=== PATIENT | female | born 1985 | race Caucasian/White ===

== ENCOUNTER → 2016-09-21 | Outpatient (CLI) | payer BC ==
[~2016-09-21] MED LIST: DCS100C PO; FERR-47 PO; HYDR-3714 PO; IBUP-1773 PO
--- NOTE | 2016-09-21 11:22 | Diagnostic Imaging Report ---
PROCEDURE: US abdomen complete. TECHNIQUE: Multiple real-time grayscale images were obtained over the abdomen in various projections. INDICATION: Generalized abdominal pain. FINDINGS: The pancreas is largely obscured. The liver is fairly homogeneous with no focal lesion seen. Hepatopetal flow in the portal vein is noted. The gallbladder demonstrates no stones or wall thickening. The CBD is 4 mm in caliber. The spleen is 9.5 CM in length. The right kidney is 9.6, and the left kidney is 9.1 cm in length. No hydronephrosis or focal lesion seen. The aorta and IVC are largely obscured by bowel gas. No ascites or fluid collection in the abdomen is seen. Sonographic [place] sign reportedly negative. IMPRESSION: Unremarkable exam. Dictated by: Dictated on workstation # [id number]
== END ==
LOC: RAD 08:11
PROVIDERS: ATTEND Internal Medicine
DX: R10.84 Generalized abdominal pain (principal)
CPT/HCPCS: 76700

== ENCOUNTER → 2016-09-24 | Outpatient (CLI) | payer BC ==
[~2016-09-24] MED LIST changes: +CATHETER FLUSH 10 ML SYR IV PRN
--- NOTE | 2016-09-24 14:36 | Diagnostic Imaging Report ---
INDICATION: Right upper quadrant abdominal pain. Nuclear hepatobiliary study performed in the routine fashion with intravenous injection of 4.97 mCi of technetium 99m Choletec. FINDINGS: There is prompt uptake of the tracer by the liver. Tracer is visualized in the biliary tree within 15 minutes. Tracer is visualized in the gallbladder within 20 minutes. Tracer is visualized in the small bowel within 1 hour. The patient was then given Ensure orally. The gallbladder ejection fraction was calculated. The calculated gallbladder ejection fraction was 47.4 percent. IMPRESSION: Normal nuclear hepatobiliary study with normal gallbladder ejection fraction. Dictated by: Dictated on workstation # [id number]
== END ==
LOC: CARD 09:55
PROVIDERS: ATTEND Internal Medicine
DX: R10.84 Generalized abdominal pain (principal); R10.11 Right upper quadrant pain
CPT/HCPCS: 78227

== ENCOUNTER 2016-11-08 05:36 | Outpatient (CLI) | payer BC ==
[~2016-11-08] VITALS: Ht 152.4 cm; Wt 89.4 kg
[~2016-11-08 05:36] MED LIST changes: -CATHETER FLUSH 10 ML SYR IV PRN
[2016-11-08] MEDS ORDERED: LACT1CAP74 PO (10:56)
[2016-11-08] MEDS ORDERED: OMEP40CA36 PO (10:56)
[2016-11-08] MEDS ORDERED: MULT-974 PO (10:56)
== END 2016-11-08 11:01 ==
LOC: PREOP 05:36
PROVIDERS: ATTEND Surgery
DX: Z01.818 Encounter for other preprocedural examination (principal); K21.9 Gastro-esophageal reflux disease without esophagitis

== ENCOUNTER 2016-11-10 08:34 | Day surgery (SDC) | payer BC ==
[~2016-11-10] VITALS: Ht 152.4 cm; Wt 89.4 kg
[~2016-11-10 08:34] MED LIST changes: +LACT1CAP74 PO; +MULT-974 PO; +OMEP40CA36 PO
[2016-11-10] MEDS ORDERED: NS IV 500 ML 500 ML IV PRN (09:10)
[2016-11-10] MEDS ORDERED: LIDOCAINE JELLY 2% (XYLOCAINE) 5 ML TUBE MM PRN (09:15)
[2016-11-10] MEDS ORDERED: HURRICAINE EXT TUBE (BENZOCAINE) XX PRN (09:15)
[2016-11-10] MEDS ORDERED: NS IV 500 ML 500 ML ONE (09:17)
[2016-11-10 09:38] VITALS: BP 118/77
[2016-11-10] MEDS ORDERED: CYAN50008 PO (09:47)
[2016-11-10] MEDS ORDERED: LIDOCAINE JELLY 2% (XYLOCAINE) 5 ML TUBE ONE (11:01)
[2016-11-10] MEDS ORDERED: MIDAZOLAM 2 MG/2 ML (VERSED) VIAL ONE ×5 (11:02→11:20)
[2016-11-10] MEDS ORDERED: HURRICAINE EXT TUBE (BENZOCAINE) ONE (11:02)
[2016-11-10] MEDS ORDERED: fentaNYL INJECTION 100 MCG/2 ML AMP ONE (11:02)
--- NOTE | 2016-11-10 11:04 | Conscious Sedation/ASA ---
Conscious Sedation Pre-Proced Time Reviewed: 10:00 ASA Class: 2 Airway Mallampati Classification: ([place] appropriate class) I. II. III, IV Lungs Heart ASA score ASA 1: a normal healthy patient ASA 2: a patient with a mild systemic disease (mid diabetes, controlled hypertension, obesity ASA 3: a patient with a severe systemic disease that limits activity (angina , COPD, prior Myocardial infarction) ASA 4: a patient with an incapacitating disease that is a constant threat to life (CHF, renal failure) ASA 5: a moribund patient not expected to survive 24 hrs. (ruptured aneurysm) ASA 6: a declared brain patient whose organs are being harvested. For emergent operations, add the letter E after the classification Grade 2 Sedation Plan: Analgesia, Amnesia, Plan communicated to team members, Discussed options with patient/fam, Discussed risks with patient/fam Note The patient is an appropriate candidate to undergo the planned procedure, sedation, and anesthesia. The patient immediately re-assessed prior to indication. LORI AMBROSIO MD Nov 10, 2016 11:04
--- NOTE | 2016-11-10 11:04 | Progress Note-Pre Operative ---
Pre-Operative Progress Note H&P Reviewed The H&P was reviewed, patient examined and no changes noted. Date Seen by Provider: Nov 10, 2016 Time Seen by Provider: 10:00 Date H&P Reviewed: Nov 10, 2016 Time H&P Reviewed: 10:00 Pre-Operative Diagnosis: LORI LIPSCOMB MD Nov 10, 2016 11:04
[2016-11-10] MEDS: MIDAZOLAM 2 MG/2 ML (VERSED) VIAL IVP PRN ×5 (11:10→11:22)
[2016-11-10] MEDS: fentaNYL INJECTION 100 MCG/2 ML AMP IVP PRN ×2 (11:11→11:14)
[2016-11-10] MEDS ORDERED: morphine INJ 10 MG/ML 1ML (SYR OR VIAL) IV PRN (11:15)
[2016-11-10] MEDS ORDERED: ACETAMINOPHEN 325 MG TABLET/CAPLET (TYLENOL) PO PRN (11:15)
[2016-11-10] MEDS ORDERED: ONDANSETRON 4 MG/2 ML (SDV) Z0FRAN IV PRN (11:15)
[2016-11-10] MEDS ORDERED: HYDROcodone/APAP 5 MG/325 MG (LORTAB) TAB PO PRN (11:15)
--- NOTE | 2016-11-10 11:53 | Progress Note-Post Operative ---
Post-Operative Progess Note Surgeon (s)/Food Stylist (s) Surgeon LORI AMBROSIO MD Food Stylist: none Pre-Operative Diagnosis GERD Post-Operative Diagnosis reflux esophagitis(class B), small HH(2cm), mild gastritis, mild-moderate duodenitis. Procedure & Operative Findings Date of Procedure 11/10/16 Procedure Performed/Findings EGD with bx. Anesthesia Type CS Estimated Blood Loss Estimated blood loss (mL): minimal Specimens/Packing Specimens Removed GE jxn, antrum, duodenum LORI AMBROSIO MD Nov 10, 2016 11:53 am
[2016-11-10 11:55] VITALS: BP 118/70
[2016-11-10] MEDS ORDERED: PANT40TA2 PO (11:55)
[2016-11-10] MEDS ORDERED: SUCR1TAB36 PO (11:55)
--- NOTE | 2016-11-10 11:57 | Discharge Inst-Surgical ---
D/C Lap Instructions-HEBERT New, Converted, or Re-Newed RX: RX on Chart Follow Up Appt in 6 weeks Activity as tolerated High Fiber Diet 25g or more per day Avoid Alcohol, Caffeine, Spicy [place] and Acid foods. Drink 64 fluid oz or more of fluids per day. Symptoms to Report: Fever over 101 degree F, Nausea/Vomiting If any problems/questions: Contact your physician or go to Emergency Room LORI AMBROSIO MD Nov 10, 2016 11:56 am
[2016-11-10 12:20] VITALS: BP 104/75
[2016-11-10 12:35] VITALS: BP 104/75
--- NOTE | 2016-11-10 13:14 | OPERATIVE REPORT ---
DATE OF SERVICE: 11/10/2016 ATTENDING PRIMARY CARE PHYSICIAN: Dr. Марина Alvarez. PREOPERATIVE DIAGNOSIS: Gastroesophageal reflux disease and upper abdominal pain. POSTOPERATIVE DIAGNOSIS: Reflux esophagitis, class B, small hiatal hernia approximately 2 cm in size, mild gastritis, mild to moderate duodenitis. PROCEDURE: EGD with biopsy. SURGEON: Dr. Ambrosio. ANESTHESIA: Conscious sedation. ESTIMATED BLOOD LOSS: Minimal. FINDINGS: Reflux esophagitis class B, small hiatal hernia approximately 2 cm in size, mild gastritis, mild to moderate duodenitis. No formal ulcers, polyps or neoplasms. DISPOSITION: The patient tolerated the procedure well. INDICATIONS: The patient is a 31-year-old female who has had upper abdominal pain for the past year. She reports the past three months this has become worse in severity. She has had a bloating sensation as well as pain in the epigastric region substernally as well as radiation towards the back. She reports traditional symptoms of heartburn and reflux as well. She does notice that sometimes when she eats worse or eats out, this makes her symptoms worse. She did have an ultrasound of her gallbladder which was normal. She then had a HIDA scan performed which showed an ejection fraction of 47%. She was started on Prilosec 40 mg daily, and her symptoms have improved; however, she has had slight recurrent symptoms over time. DESCRIPTION OF PROCEDURE: The patient was brought to the endoscopy suite, laid in the left lateral decubitus position. After adequate IV pain and sedative medications and conscious sedation anesthesia, the mouthpiece was applied. The endoscope was placed in the mouth, visualizing the pharynx and hypopharyngeal region. Vocal cords, epiglottis and vallecula identified and appeared to be normal. The endoscope was then gently intubated at the esophageal opening and esophagus insufflated. The endoscope was then advanced to the first, second and third portion of esophagus. At the level of the GE junction, a reflux esophagitis class B identified. There were no ulcers or strictures identified in this region. A biopsy was taken with forceps with visualization of good hemostasis. The endoscope was then easily advanced into the stomach and the endoscope retroflexed, visualizing a small hiatal hernia approximately 2 cm in size. A mild gastritis was noted. There were no ulcers, polyps or any neoplasms identified. Biopsy was taken of the stomach antrum with visualization of good hemostasis. The endoscope was then advanced to the pylorus and the first and second portions of the duodenum with a mild to moderate duodenitis noted as well. There were no ulcers identified. A biopsy was taken of the duodenum with visualization of good hemostasis. The endoscope was then slowly withdrawn taking a second look and suctioning residual air with no additional findings. The patient tolerated the procedure well. We will await the biopsy results; however, her symptoms may be related to acid hypersecretion versus hiatal hernia versus diet versus a food allergy. We will proceed with Protonix 40 mg daily, as well as Carafate q.i.d. for the next two weeks and have her follow up. Job ID: [id number] DocumentID: [id number] Dictated Date: 11/10/2016 11:49:00 [employer] Date: 11/10/2016 13:13:43 Dictated By: LORI AMBROSIO MD MTDD
== END 2016-11-10 12:35 | disposition home or self-care (01) ==
LOC: ENDO 08:34
PROVIDERS: ATTEND Surgery
DX: K21.0 Gastro-esophageal reflux disease with esophagitis (principal); K44.9 Diaphragmatic hernia without obstruction or gangrene; K29.60 Other gastritis without bleeding; K29.80 Duodenitis without bleeding; Z87.891 Personal history of nicotine dependence
CPT/HCPCS: 84703; 88305

== ENCOUNTER → 2017-08-11 | Outpatient (CLI) | payer BC ==
[~2017-08-11] MED LIST changes: +CYAN50008 PO; +PANT40TA2 PO; +SUCR1TAB36 PO
--- NOTE | 2017-08-11 18:35 | Diagnostic Imaging Report ---
INDICATION: anatomy survey. TECHNIQUE: Multiple real-time grayscale images were obtained over the gravid uterus. COMPARISON: None. FINDINGS: There is a single live intrauterine in variable lie throughout the examination. The cervix is closed and measures 5.7 cm in length. The placenta is anteriorly located and there is no previa or low-lying placenta. heart rate is 165 beats per minute. The amount of amniotic fluid appears visually appropriate. Due to advanced gestational age, the maternal adnexa are not well seen. anatomy survey was performed and the following structures are seen and normal: Cisterna magna, cerebellum, cerebral ventricles, four-chamber heart, stomach, kidneys, all four extremities, urinary bladder, lips, and nose. The spine, umbilical cord insertion, and three-vessel cord are not well visualized. Biometrical measurements are as follows: Biparietal 4.82 cm, age 20 weeks 5 days. Head circumference 18.18 cm, age 20 weeks 5 days. Abdominal circumference 16.19 cm, age 21 weeks 2 days. Femur length 3.38 cm, age 20 weeks 5 days. Sonographic estimate age: 20 weeks 6 days. Sonographic estimated date of delivery: 12/23/2017. Estimated Weight: 386 gm (+/- 56 gm). LMP percentile: 86%. heart rate: 165 beats per minute. number: 1 of 1. IMPRESSION: 1. Single live intrauterine . 2. anatomy survey is normal with the exception of suboptimal visualization of the spine, umbilical cord, and umbilical cord insertion. Dedicated short-term follow-up imaging is advised to reassess these structures. Dictated by: Dictated on workstation # [id number]
== END ==
LOC: RAD 17:23
PROVIDERS: ATTEND Obstetrics & Gynecology
DX: Z36.89 Encounter for other specified antenatal screening (principal); Z3A.20 20 weeks gestation of pregnancy
CPT/HCPCS: 76805

== ENCOUNTER → 2017-10-03 | Outpatient (CLI) | payer BC ==
--- NOTE | 2017-10-03 16:10 | Diagnostic Imaging Report ---
INDICATION: Followup spine, growth, as well as cord insertion. TECHNIQUE: Multiple real-time grayscale images were obtained over the gravid uterus. COMPARISON: 08/11/2017. FINDINGS: There is a single live fetus in a cephalic presentation. heart rate was recorded at 142 beats per minute. Placenta is anterior. Amniotic fluid volume is normal. spine is unremarkable. The cord insertion is unremarkable. Biometrical measurements are as follows: Biparietal 7.06 cm, age 28 weeks 3 days. Head circumference 26.6 cm, age 29 weeks 0 days. Abdominal circumference 25.93 cm, age 30 weeks 1 days. Femur length 5.43 cm, age 28 weeks 6 days. Sonographic estimate age: 29 weeks 1 days. Sonographic estimated date of delivery: 12/18/2017. Estimated Weight: 1388 gm (+/- 203 gm). LMP percentile: 93%. heart rate: 142 beats per minute. number: 1 of 1. IMPRESSION: Single live IUP at approximately 29 weeks gestational age demonstrating normal interval growth when compared with prior exam. No complicating features are detected. Dictated by: Dictated on workstation # [id number]
== END ==
LOC: RAD 15:18
PROVIDERS: ATTEND Obstetrics & Gynecology
DX: Z36.89 Encounter for other specified antenatal screening (principal); Z3A.29 29 weeks gestation of pregnancy
CPT/HCPCS: 76816

== ENCOUNTER → 2017-12-05 | Outpatient (CLI) | payer BC ==
[~2017-12-05] MED LIST changes: +ACET-2267 PO; +FERR-84 PO; +PANT40TA3 PO
--- NOTE | 2017-12-05 13:35 | Diagnostic Imaging Report ---
INDICATION: Followup growth. TECHNIQUE: Multiple real-time grayscale images were obtained over the gravid uterus. COMPARISON: 10/03/2017. FINDINGS: There is a single live fetus in a cephalic presentation. heart rate was recorded at 155 beats per minute. The placenta is anterior. Amniotic fluid index is 13.2 cm. Cervical length is 5.3 cm. Biometrical measurements are as follows: Biparietal 9.29 cm, age 37 weeks 6 days. Head circumference 34.46 cm, age 39 weeks 6 days. Abdominal circumference 37.00 cm, age 41 weeks 0 days. Femur length 7.18 cm, age 36 weeks 6 days. Sonographic estimate age: 39 weeks 0 days. Sonographic estimated date of delivery: 12/12/2017. Estimated Weight: 3824 gm (+/- 558 gm). LMP percentile: 98%. heart rate: 155 beats per minute. number: 1 of 1. IMPRESSION: Single live IUP at approximately 39 weeks gestational age demonstrating normal interval growth when compared with prior exam. No complicating features are seen. Dictated by: Dictated on workstation # [id number]
== END ==
LOC: RAD 10:35
PROVIDERS: ATTEND Obstetrics & Gynecology
DX: O36.63X0 Maternal care for excessive fetal growth, third trimester, not applicable or unspecified (principal); Z3A.39 39 weeks gestation of pregnancy
CPT/HCPCS: 76816

== ENCOUNTER 2017-12-19 05:32 | Outpatient (CLI) | payer BC ==
[~2017-12-19] VITALS: Ht 152.4 cm; Wt 102.5 kg
[~2017-12-19 05:32] MED LIST changes: -ACET-2267 PO; -FERR-84 PO; -PANT40TA3 PO
[2017-12-19] MEDS ORDERED: FERR-84 PO (11:37)
[2017-12-19] MEDS ORDERED: PANT40TA3 PO (11:37)
== END 2017-12-19 11:41 | disposition home or self-care (01) ==
LOC: PREOP 05:32
PROVIDERS: ATTEND Obstetrics & Gynecology
DX: Z01.818 Encounter for other preprocedural examination (principal)

== ENCOUNTER 2017-12-23 04:36 | Inpatient (IN) | payer BC ==
[~2017-12-23] VITALS: Ht 152.4 cm; Wt 101.8 kg
[~2017-12-23 04:36] MED LIST changes: +FERR-84 PO; +PANT40TA3 PO
[2017-12-23 06:06] VITALS: BP 121/73
[2017-12-23] MEDS ORDERED: LACTATED RINGERS 1,000 ML IV PRN ×2 (06:19)
[2017-12-23] MEDS ORDERED: D5 LR IV SOLUTION 1,000 ML IV SCH ×2 (06:20→08:22)
[2017-12-23] MEDS ORDERED: CATHETER FLUSH 10 ML SYR IV PRN (06:30)
[2017-12-23] MEDS ORDERED: METOCLOPRAMIDE INJ 10 MG/2 ML (REGLAN) IV ONE (06:30)
[2017-12-23] MEDS ORDERED: metroNIDAZOLE 500MG/100ML IVPB 100 ML IV ONE (06:30)
[2017-12-23] MEDS ORDERED: CITRIC ACID/SOB CIT (BICITRA) 30 ML UDC PO ONE (06:30)
[2017-12-23] MEDS ORDERED: FAMOTIDINE 20MG/2ML IV (PEPCID) IV ONE (06:30)
[2017-12-23] MEDS ORDERED: ceFAZolin INJECTION 1,000 MG in NS (IVPB) 50 ML IV ONE (06:30)
[2017-12-23 06:31] LABS: BASOPHILS % (AUTO) 0 % (0-10); EOSINOPHILS # (AUTO) 0.2 10^3/uL (0.0-0.3); EOSINOPHILS % (AUTO) 2 % (0-10); HEMATOCRIT 34 % (35-52); HEMOGLOBIN 11.4 G/DL (11.5-16.0); LYMPHOCYTES # (AUTO) 1.8 X 10^3 (1.0-4.0); LYMPHOCYTES % (AUTO) 16 % (12-44); MEAN CORPUSCULAR HEMOGLOBIN 29 PG (25-34); MEAN CORPUSCULAR HGB CONC 34 G/DL (32-36); MEAN CORPUSCULAR VOLUME 85 FL (80-99); MONOCYTES % (AUTO) 9 % (0-12); NEUTROPHILS # (AUTO) 8.3 X 10^3 (1.8-7.8); NEUTROPHILS % (AUTO) 73 % (42-75); PLATELET COUNT 242 10^3/uL (130-400); RED BLOOD COUNT 3.99 10^6/uL (4.35-5.85); RED CELL DISTRIBUTION WIDTH 16.5 % (10.0-14.5); WHITE BLOOD COUNT 11.3 10^3/uL (4.3-11.0)
[2017-12-23] MEDS ORDERED: fentaNYL INJECTION 100 MCG/2 ML AMP ONE (06:36)
[2017-12-23 06:38] LABS: BILIRUBIN,URINE NEGATIVE (NEGATIVE); CLARITY,URINE CLEAR; COLOR,URINE YELLOW; GLUCOSE, URINE (UA) NEGATIVE (NEGATIVE); KETONES,URINE NEGATIVE (NEGATIVE); LEUKOCYTE ESTERASE ,URINE 1+ (NEGATIVE); NITRITE,URINE NEGATIVE (NEGATIVE); PH,URINE 7 (5-9); PROTEIN,URINE NEGATIVE (NEGATIVE); UROBILINOGEN,URINE NORMAL (NORMAL)
[2017-12-23 06:46] LABS: AMORPHOUS SEDIMENT,UR FEW AMOR PHOSPHATE /LPF; BACTERIA,URINE TRACE /HPF; WBC,URINE 0-2 /HPF
--- NOTE | 2017-12-23 07:13 | Progress Note-Pre Operative ---
Pre-Operative Progress Note H&P Reviewed The H&P was reviewed, patient examined and no changes noted. Patient will do cord blood banking. Has kit with her Date Seen by Provider: Dec 23, 2017 Time Seen by Provider: 07:05 Date H&P Reviewed: Dec 23, 2017 Time H&P Reviewed: 07:00 Pre-Operative Diagnosis: previous section FATUMA TEE DO Dec 23, 2017 07:13
[2017-12-23] MEDS ORDERED: BUPIVACAINE SPINAL 0.75% (SENSORCAINE) 2 ML AMP ONE (07:27)
[2017-12-23] MEDS ORDERED: LIDOCAINE PF 2% 5 ML (XYLOCAINE) VIAL ONE (07:27)
[2017-12-23] MEDS ORDERED: DEXAMETHASONE 10 MG/ML (DECADRON) 1 ML VIAL ONE (07:28)
[2017-12-23] MEDS ORDERED: ONDANSETRON 4 MG/2 ML (SDV) Z0FRAN ONE (07:28)
[2017-12-23] MEDS ORDERED: ROPIVACAINE 5MG/ML 30ML VIAL ONE (08:12)
[2017-12-23] MEDS ORDERED: OXYTOCIN/NORMAL SALINE 1,000 ML IV ONE (08:12)
[2017-12-23] MEDS ORDERED: OXYTOCIN/NORMAL SALINE 500 ML IV SCH (08:22)
--- NOTE | 2017-12-23 08:29 | Cesarean Section Operative ---
Procedure Procedure Note Pre-operative Diagnosis: Colleen Jones is a 32 /Para 2 /1 , Gestational Age 39 2/7 weeks with history of previous section Post-operative Diagnosis: same, cord blood collection for banking Procedure: [] low transverse section Physician: FATUMA TEE Street Sweeper: ALEXIA Estimated blood loss: 750 mL Disposition: stable Findings: Viable female , Apgars 8/9, weight 8#11oz, intact placenta, 3vc, normal appearing uterus, tubes, and ovaries. Indications:Colleen Jones is a 32 /Para 2 /1 ,Gestational Age 39 2/7 weeks with history of previous section Procedure Details: The patient was seen in pre-op and the procedure was discussed with the patient in full, including the risks, benefits, and alternatives. All questions were answered. The patient was taken to the operating room and a time out was performed, verifying patient and procedure. After spinal anesthesia was placed by our anesthesia colleagues, the patient was placed in the dorsal supine with leftward tilt for uterine displacement.~ Her abdomen was then prepped and draped in the typical sterile fashion. A Pfannenstiel skin incision was made using a scalpel and carried down through the underlying fascia. The fascia was incised in the midline and tented up using Mireya clamps. On both the inferior and superior fascia side the rectus muscle was dissected off bluntly and sharply using Arguelles scissors. The peritoneum was identified and entered bluntly in the midline. This was then stretched laterally using manual strength. After entering the abdominal cavity and confirming lack of intraperitoneal adhesions, an extra large Ignacio retractor was placed and the lower uterine segment was visualized. the uterus was noted to be thin, but no uterine window was noted. A scalpel was utilized to make a low transverse uterine incision. Amniotomy was performed with an Allis clamp with return of excessive clear fluid. The infant's head was grasped and brought to the level of the incision. Fundal pressure was applied and infant was delivered without difficulty. Mouth and nares were suctioned with bulb suction. After the umbilical cord was clamped and cut, the infant was handed off to the pediatric staff. the cord blood was now collected for cor blood banking per the instructions. A sample of cord blood was then obtained. The placenta was delivered intact via uterine massage. The uterus was cleared of all clots and debris. The uterine incision was closed using 0 Vicryl in a running locked fashion. A second imbricated layer was placed using 0 Vicryl in a running fashion as well. The uterus was flexed forward and the posterior rectouterine space was inspected and cleared of all clots and debris. Again the hysterotomy site was examined and hemostasis was observed. The bilateral tubes and ovaries appeared normal. The abdominal gutters were cleared of all clots and debris. A final check of the uterine incision showed it to be hemostatic. The peritoneum was closed using 3-0 Vicryl in a running fashion. The fascia was closed with 0 Vicryl in a running fashion. The subcutaneous space was hemostatic , and irrigated. The subcutaneous space was closed with 3-0 Plain in several single interrupted stitches. The skin was then closed using 4-0 Monocryl in a running subcuticular fashion. The skin edges were reapproximated together and were hemostatic. A pressure dressing was applied. All sponge, lap and needle counts were correct at the end of the procedure per nursing. Vitals - Labs Vital Signs - I&O Vital Signs Date Time Temp Pulse Resp B/P (MAP) Pulse Ox O2 Delivery O2 Flow Rate FiO2 12/23/17 07:10 98.3 12/23/17 06:06 98.1 103 18 121/73 (89) Room Air Labs Laboratory Tests 12/23/17 06:00: Urine Color YELLOW, Urine Clarity CLEAR, Urine pH 7, Urine Specific Mobile 1.015L, Urine Protein NEGATIVE, Urine Glucose (UA) NEGATIVE, Urine Ketones NEGATIVE, Urine Nitrite NEGATIVE, Urine Bilirubin NEGATIVE, Urine Urobilinogen NORMAL, Urine Leukocyte Esterase 1+H, Urine RBC (Auto) NEGATIVE, Urine RBC NONE , Urine WBC 0-2, Urine Squamous Epithelial Cells 10-25H, Urine Crystals PRESENTH , Urine Amorphous Sediment FEW JL PHOSPHATEH, Urine Bacteria TRACE, Urine Casts NONE, Urine Mucus SMALLH, Urine Culture Indicated NO 12/23/17 06:15: White Blood Count 11.3H, Red Blood Count 3.99L, Hemoglobin 11.4L, Hematocrit 34L , Mean Corpuscular Volume 85, Mean Corpuscular Hemoglobin 29, Mean Corpuscular Hemoglobin Concent 34, Red Cell Distribution Width 16.5H, Platelet Count 242, Mean Platelet Volume 9.0, Neutrophils (%) (Auto) 73, Lymphocytes (%) (Auto) 16, Monocytes (%) (Auto) 9, Eosinophils (%) (Auto) 2, Basophils (%) (Auto) 0, Neutrophils # (Auto) 8.3H, Lymphocytes # (Auto) 1.8, Monocytes # (Auto) 1.0, Eosinophils # (Auto) 0.2, Basophils # (Auto) 0.0 FATUMA TEE DO Dec 23, 2017 08:29
[2017-12-23] MEDS ORDERED: morphine INJ 4 MG/ML 1 ML (VIAL/SYRINGE) IVP PRN (08:30)
[2017-12-23] MEDS ORDERED: MEASLES,MUMPS,RUBELLA 1 EA INJ SC SCH (08:30)
[2017-12-23] MEDS ORDERED: HYDROcodone/APAP 5 MG/325 MG (LORTAB) TAB PO PRN (08:30)
[2017-12-23] MEDS ORDERED: TETANUS,DIPTH,PERTUSS P/F (BOOSTRIX) 0.5 ML VIAL IM SCH (08:30)
[2017-12-23] MEDS ORDERED: ONDANSETRON 4 MG/2 ML (SDV) Z0FRAN IVP PRN (08:30)
[2017-12-23] MEDS ORDERED: diphenhydrAMINE 50 MG/ML INJ (BENADRYL) IV PRN (09:15)
[2017-12-23] MEDS ORDERED: ONDANSETRON 4 MG/2 ML (SDV) Z0FRAN IV PRN (09:15)
[2017-12-23] MEDS ORDERED: METOCLOPRAMIDE INJ 10 MG/2 ML (REGLAN) IV PRN (09:15)
[2017-12-23] MEDS ORDERED: NALOXONE 0.4 MG/ML 1 ML (NARCAN) VIAL IV PRN ×2 (09:15)
[2017-12-23 11:00] VITALS: BP 117/74
[2017-12-23] MEDS ORDERED: FLU QUADRIvalent (5+ YOA) 2018-2019 (AFLURIA) 0.5 ML IM ONE (11:15)
[2017-12-23] MEDS ORDERED: CATHETER FLUSH 10 ML SYR IV SCH (14:00)
[2017-12-23] MEDS: KETOROLAC 30 MG/ML VIAL IVP SCH ×2 (15:18→20:39)
[2017-12-23 15:20] VITALS: BP 119/71
[2017-12-23] MEDS: DOCUSATE SODIUM 100 MG (COLACE) CAP PO SCH (20:39)
[2017-12-23 20:49] VITALS: BP 116/72
[2017-12-24 00:50] VITALS: BP 104/61
[2017-12-24] MEDS ORDERED: IBUPROFEN 600 MG (MOTRIN) TAB PO ONE (03:14)
[2017-12-24 05:54] LABS: BASOPHILS % (AUTO) 0 % (0-10); EOSINOPHILS # (AUTO) 0.1 10^3/uL (0.0-0.3); EOSINOPHILS % (AUTO) 1 % (0-10); HEMATOCRIT 27 % (35-52); HEMOGLOBIN 8.5 G/DL (11.5-16.0); LYMPHOCYTES % (AUTO) 24 % (12-44); MEAN CORPUSCULAR HEMOGLOBIN 28 PG (25-34); MEAN CORPUSCULAR HGB CONC 32 G/DL (32-36); MEAN CORPUSCULAR VOLUME 87 FL (80-99); MEAN PLATELET VOLUME 8.7 FL (7.4-10.4); MONOCYTES # (AUTO) 1.6 X 10^3 (0.0-1.0); MONOCYTES % (AUTO) 9 % (0-12); NEUTROPHILS # (AUTO) 11.2 X 10^3 (1.8-7.8); NEUTROPHILS % (AUTO) 66 % (42-75); PLATELET COUNT 256 10^3/uL (130-400); RED BLOOD COUNT 3.07 10^6/uL (4.35-5.85); RED CELL DISTRIBUTION WIDTH 16.6 % (10.0-14.5); WHITE BLOOD COUNT 16.9 10^3/uL (4.3-11.0)
[2017-12-24 06:37] LABS: LYMPHOCYTES % (MANUAL) 20 %; MONOCYTES % (MANUAL) 7 %; NEUTROPHILS % (MANUAL) 73 %
[2017-12-24] MEDS ORDERED: FERROUS SULF 325 MG (IRON) TAB PO SCH (07:00)
[2017-12-24] MEDS: DOCUSATE SODIUM 100 MG (COLACE) CAP PO SCH (08:28)
[2017-12-24] MEDS: IBUPROFEN 600 MG (MOTRIN) TAB PO SCH ×2 (08:28→16:39)
[2017-12-24 08:29] VITALS: BP 106/59
[2017-12-24 12:00] VITALS: BP 118/77
--- NOTE | 2017-12-24 17:18 | Anesthesia-Regional Post-Op ---
Regional Patient Condition Mental Status: Alert, Oriented x3 Circulation: Same as Pre-Op Headache: Absent Sensation: Full Recovery Motor Block: Absent Post Op Complications Complications None Follow Up Care/Instructions Patient Instructions None needed. Anesthesia/Patient Condition Patient is doing well, no complaints, stable vital signs, no apparent adverse anesthesia problems. No complications reported per nursing. GITA WILSON CRNA Dec 24, 2017 17:18
--- NOTE | 2017-12-24 17:40 | Postpartum Progress Note ---
Post Op Post-operative Day #1 s/p RLTCS Subjective: Patient is without complaints. Ambulating, voiding after horton removed. Tolerating a regular diet without nausea or vomiting. Normal lochia. Pain is well controlled with oral pain medications. Passing flatus. breast feeding Objective: 12/24/17 12/24/17 08:29 12:00 Temp 98.7 97.4 Pulse 93 71 Resp 18 18 B/P (MAP) 106/59 (75) 118/77 (91) Pulse Ox 96 96 O2 Delivery Room Air Room Air 12/24/17 00:00 Intake Total 1250 ml Output Total 850 ml Balance 400 ml Laboratory Tests Test 12/24/17 05:35 Range/Units White Blood Count 16.9 H 4.3-11.0 10^3/uL Red Blood Count 3.07 L 4.35-5.85 10^6/uL Hemoglobin 8.5 #L 11.5-16.0 G/DL Hematocrit 27 L 35-52 % Mean Corpuscular Volume 87 80-99 FL Mean Corpuscular Hemoglobin 28 25-34 PG Mean Corpuscular Hemoglobin Concent 32 32-36 G/DL Red Cell Distribution Width 16.6 H 10.0-14.5 % Platelet Count 256 130-400 10^3/uL Mean Platelet Volume 8.7 7.4-10.4 FL Neutrophils (%) (Auto) 66 42-75 % Lymphocytes (%) (Auto) 24 12-44 % Monocytes (%) (Auto) 9 0-12 % Eosinophils (%) (Auto) 1 0-10 % Basophils (%) (Auto) 0 0-10 % Neutrophils # (Auto) 11.2 H 1.8-7.8 X 10^3 Lymphocytes # (Auto) 4.0 1.0-4.0 X 10^3 Monocytes # (Auto) 1.6 H 0.0-1.0 X 10^3 Eosinophils # (Auto) 0.1 0.0-0.3 10^3/uL Basophils # (Auto) 0.0 0.0-0.1 10^3/uL Neutrophils % (Manual) 73 % Lymphocytes % (Manual) 20 % Monocytes % (Manual) 7 % Physical Exam: General - Alert and oriented, no apparent distress Abdomen - Soft, appropriately tender to palpation, non-distended, fundus firm at umbilicus Incision - clean, dry and intact; no erythema or induration, no drainage Extremities - no edema, negative Nayana's bilaterally [] Assessment: [] post-operative day # [], status post []. Recovering well, hemodynamically stable Acute blood loss anemia [] Plan: Routine post-operative care. Encourage breast feeding. Encourage ambulation. VTE prophylaxis: SCDs. Ferrous sulfate supplementation. Plan for discharge [] Vitals - Labs Vital Signs - I&O Vital Signs Date Time Temp Pulse Resp B/P (MAP) Pulse Ox O2 Delivery O2 Flow Rate FiO2 12/24/17 12:00 97.4 71 18 118/77 (91) 96 Room Air 12/24/17 08:29 98.7 93 18 106/59 (75) 96 Room Air 12/24/17 00:50 97.7 81 18 104/61 (75) 98 Room Air 12/23/17 20:49 97.6 80 18 116/72 (87) 98 Room Air I & O 12/24/17 07:00 Intake Total 3210 ml Output Total 3300 ml Balance -90 ml Labs Laboratory Tests 12/24/17 05:35: White Blood Count 16.9H, Red Blood Count 3.07L, Hemoglobin 8.5#L, Hematocrit 27L , Mean Corpuscular Volume 87, Mean Corpuscular Hemoglobin 28, Mean Corpuscular Hemoglobin Concent 32, Red Cell Distribution Width 16.6H, Platelet Count 256, Mean Platelet Volume 8.7, Neutrophils (%) (Auto) 66, Lymphocytes (%) (Auto) 24, Monocytes (%) (Auto) 9, Eosinophils (%) (Auto) 1, Basophils (%) (Auto) 0, Neutrophils # (Auto) 11.2H, Lymphocytes # (Auto) 4.0, Monocytes # (Auto) 1.6H, Eosinophils # (Auto) 0.1, Basophils # (Auto) 0.0, Neutrophils % (Manual) 73, Lymphocytes % (Manual) 20, Monocytes % (Manual) 7 FATUMA TEE DO Dec 24, 2017 17:40
[2017-12-24] MEDS ORDERED: IBUP-1773 PO (17:43)
[2017-12-24] MEDS ORDERED: ACET-2267 PO (17:43)
--- NOTE | 2017-12-24 17:46 | Discharge Inst-Women's Service ---
Discharge Inst-Women's Serv Depart Medication/Instructions New, Converted or Re-Newed RX: Other Final Diagnosis previous section acute blood loss anemia Consults/Follow Up Additional Follow Up: Yes (1 week for incision check with JACQUELINE SEGURA and 6 week pp exam with Dr. Castrejon) Activity Activity: Activity as Tolerated Driving Instructions: No Driving for 1 Week NO SMOKING: NO SMOKING Nothing Inside Vagina: No Douching, No [place], No Tampons Diet Discharge Diet: No Restrictions Symptoms to Report to : Bleeding Excessive, Pain Increased, Fever Over 101 Degrees F, Vaginal Bleeding Increase, Vaginal Discharge Foul For Any Problems or Questions: Contact Your Physician Skin/Wound Care Infection Signs and Symptoms: Increased Redness, Foul Odor of Wound, Increased Drainage, Skin Itchy or Has a Rash, Increased Swelling, Temperature Above 101 F Operative Area Clean and Dry: Keep Incision Clean/Dry Stitches/[place]/Dermabond: Dermabond Bathing Instructions: FATUMA Barbour DO Dec 24, 2017 17:46
== END 2017-12-24 18:40 | disposition home or self-care (01) | DRG 765 ==
LOC: LDRP 06:00
PROVIDERS: ADMIT Obstetrics & Gynecology; ATTEND Obstetrics & Gynecology
PROC: 10D00Z1 Extraction of Products of Conception, Low, Open Approach (ICD-10-PCS; principal; 2017-12-23 07:20)
DX: O34.219 Maternal care for unspecified type scar from previous cesarean delivery (principal); D62 Acute posthemorrhagic anemia; O90.81 Anemia of the puerperium; Z37.0 Single live birth; Z3A.39 39 weeks gestation of pregnancy
CPT/HCPCS: 36415; 81000; 85007; 85025; 85027; 86850; 86900; 86901; 94664

== ENCOUNTER → 2020-08-07 | Outpatient (CLI) | payer BC, OTHER ==
[~2020-08-07] MED LIST changes: +ACET-2267 PO; +OMEP40CA27 PO; -OMEP40CA36 PO; -PANT40TA3 PO; +PANT40TA52 PO
--- NOTE | 2020-08-07 15:11 | Diagnostic Imaging Report ---
INDICATION: Evaluate for placenta previa or placenta accreta. TECHNIQUE: Multiple Real-time grayscale images were obtained over the gravid uterus. COMPARISON: None. FINDINGS: There is a single live fetus in transverse presentation with the head to the maternal left. The heart rate was recorded at 150 BPM. The placenta is anterior and low lying. No previa is seen. There is myometrial mass-like echogenicity in a retroplacental location with blood flow resembling either a uterine contraction or potentially a fibroid. There is sharp interface between the placenta and the adjacent myometrium without evidence of accreta. The amniotic fluid index is 13 cm. Biometrical measurements are as follows: Biparietal 4.56 cm, age 19 weeks 6 days. Head circumference 17.21 cm, age 19 weeks 6 days. Abdominal circumference 15.50 cm, age 20 weeks 5 days. Femur length 3.21 cm, age 20 weeks 0 days. Sonographic estimate age: 20 weeks 1 days. Sonographic estimated date of delivery: 12/24/2020. Estimated Weight: 344 gm (+/- 50 gm). LMP percentile: 54%. heart rate: 150 beats per minute. number: 1 of 1. IMPRESSION: Single live IUP of 20 weeks 1 day gestational age with an estimated date of confinement sonographically of 12/24/2020. No complicating features are identified. Dictated by: Dictated on workstation # [id number]
== END ==
LOC: RAD 12:47
PROVIDERS: ATTEND Obstetrics & Gynecology
DX: Z34.92 Encounter for supervision of normal pregnancy, unspecified, second trimester (principal); Z3A.20 20 weeks gestation of pregnancy
CPT/HCPCS: 76805

== ENCOUNTER 2020-10-30 09:22 | Outpatient (RCR) | payer OTHER ==
[~2020-10-30] VITALS: Ht 152.4 cm; Wt 90.1 kg
[~2020-10-30 09:22] MED LIST changes: -CYAN50008 PO; +CYAN50009 PO; -OMEP40CA27 PO; +OMEP40CA6 PO
[2020-10-30] MEDS ORDERED: FERRIC CARBOXYMALTOSE INJ 750 MG in NS (IVPB) 250 ML IV ONE (09:45)
[2020-10-30 10:18] VITALS: BP 132/33
== END 2020-10-30 11:13 | disposition home or self-care (01) ==
LOC: SDC 09:22
PROVIDERS: ATTEND Obstetrics & Gynecology
DX: Z01.89 Encounter for other specified special examinations (principal)
CPT/HCPCS: 96365

== ENCOUNTER 2020-12-09 05:29 | Outpatient (CLI) | payer OTHER ==
[~2020-12-09] VITALS: Ht 152.4 cm; Wt 102.2 kg
[2020-12-09] MEDS ORDERED: PNV1TABL9 PO (14:24)
== END 2020-12-09 14:28 | disposition home or self-care (01) ==
LOC: PREOP 05:29
PROVIDERS: ATTEND Obstetrics & Gynecology
DX: Z01.818 Encounter for other preprocedural examination (principal)

== ENCOUNTER 2020-12-16 06:04 | Inpatient (IN) | payer OTHER ==
[2020-12-16] VITALS (9 sets, daily range): BP systolic 103–139; BP diastolic 55–78
[~2020-12-16] VITALS: Ht 152.4 cm; Wt 103.0 kg
[~2020-12-16 06:04] MED LIST changes: +PNV1TABL9 PO
[2020-12-16] MEDS ORDERED: ceFAZolin 2 GM IV Premixed 50 ML IV ONE (06:15)
[2020-12-16] MEDS ORDERED: FAMOTIDINE 20MG/2ML IV (PEPCID) IV ONE (06:30)
[2020-12-16] MEDS ORDERED: LACTATED RINGERS 1,000 ML IV PRN ×2 (06:30)
[2020-12-16] MEDS ORDERED: METOCLOPRAMIDE INJ 10 MG/2 ML (REGLAN) IV ONE (06:30)
[2020-12-16] MEDS ORDERED: CITRIC ACID/SOB CIT (BICITRA) 30 ML UDC PO ONE (06:30)
[2020-12-16 06:41] LABS: BASOPHILS % (AUTO) 0 % (0-10); EOSINOPHILS # (AUTO) 0.1 10^3/uL (0.0-0.3); EOSINOPHILS % (AUTO) 1 % (0-10); HEMATOCRIT 37 % (35-52); HEMOGLOBIN 11.9 g/dL (11.5-16.0); LYMPHOCYTES # (AUTO) 1.7 10^3/uL (1.0-4.0); LYMPHOCYTES % (AUTO) 16 % (12-44); MEAN CORPUSCULAR HEMOGLOBIN 28 pg (25-34); MEAN CORPUSCULAR HGB CONC 33 g/dL (32-36); MEAN CORPUSCULAR VOLUME 85 fL (80-99); MEAN PLATELET VOLUME 9.4 fL (9.0-12.2); MONOCYTES # (AUTO) 0.8 10^3/uL (0.0-1.0); MONOCYTES % (AUTO) 8 % (0-12); NEUTROPHILS # (AUTO) 8.2 10^3/uL (1.8-7.8); NEUTROPHILS % (AUTO) 75 % (42-75); PLATELET COUNT 204 10^3/uL (130-400); WHITE BLOOD COUNT 10.9 10^3/uL (4.3-11.0)
[2020-12-16] MEDS ORDERED: fentaNYL INJ 100 MCG/2 ML AMP ONE (07:15)
[2020-12-16] MEDS ORDERED: BUPIVACAINE 0.25% 30 ML (SENSORCAINE) VIAL ONE (07:15)
[2020-12-16] MEDS ORDERED: OXYTOCIN PRE-MIX DRIP 1,000 ML IV ONE (07:15)
--- NOTE | 2020-12-16 07:44 | History & Physical-OB ---
OB - Chief Complaint & HPI Date/Time Date of Admission: Date of Admission: Dec 16, 2020 at 06:04 Time Seen by a Provider: 07:30 Chief Complaint/History OB-Reason for Admission/Chief: Section (Patient presents for repeat CS. Had SROM at admission to the hospital) Hx : 3 Hx Para: 2 Expected Date of Delivery: Dec 16, 2020 Gestational Age in Weeks: 39 Gestational Age in Days: 2 Indication for : desires repeat Admission Nurse Assessment Rev: Yes History of Labs A+/- HIV - HBsAg- Hep C - Rub I VDRL NR GBS - Other Uncomplicated except iron deficiency anemia. Received iron transfusion during due to low ferritin. Has completed covid vaccination series Allergies and Home Medications Allergies Coded Allergies: hydromorphone (Verified Adverse Reaction, Unknown, NAUSEA/vomiting, 12/19/17) Patient Home Medication List Home Medication List Reviewed: Yes Ferrous Sulfate (Iron) 325 Mg Tablet, 325 MG PO DAILY, (Reported) Entered as Reported by: TIKI ROBLEDO on 12/19/17 1137 Lactobacillus Combination No.4 (Probiotic) 1 Each Capsule, 1 EACH PO DAILY, (Reported) Entered as Reported by: TIKI ROBLEDO on 11/08/16 1056 Pantoprazole Sodium (Pantoprazole Sodium) 40 Mg Tablet.dr, 40 MG PO DAILY, (Reported) Entered as Reported by: TIKI ROBLEDO on 12/19/17 1137 Pnv Cmb#21/Iron/Folic Acid ( Complete Caplet) 1 Each Tablet, 1 EACH PO DAILY, (Reported) Entered as Reported by: KAITLIN MERINO on 12/09/20 1424 Discontinued Medications Acetaminophen (Tylenol Extra Strength) 500 Mg Tablet, 1,000 MG PO Q8H Discontinued Reason: No Longer Taking Prescribed by: FATUMA TEE on 12/24/17 174 Ibuprofen (Ibuprofen) 600 Mg Tablet, 600 MG PO Q6H PRN for PAIN Discontinued Reason: No Longer Taking Prescribed by: FATUMA TEE on 12/24/17 174 Multivitamin (Multi-Vitamin Daily) 1 Each Tablet, 1 EACH PO DAILY, (Reported) Discontinued Reason: No Longer Taking Entered as Reported by: TIKI ROBLEDO on 11/08/16 1056 OB - History Hx of Present Care: Yes Ultrasounds: Normal mid trimester US Obstetrical Complications: None Medical Complications: None Information Induced Hypertension: No Maternal Gestational Diabetes: No Hemorrhage: No Obstetrical History Hx : 3 Hx Para: 2 Hx # Term Pregnancies: 2 Hx # Pregnancies: 0 Number of Living Children: 2 Hx Termination: No Hx Multiple Gestation: No Hx Ectopic : No Hx Stillbirth: No Hx Complication: No Hx Induced Hypertens: No Hx Maternal Gestational Diabet: No Delivery History Hx Dystocia: Yes Hx Forceps Assisted Delivery: No Hx Vacuum Extraction Assisted: No Hx Placenta Abnormality: No Hx Distress: No Hx Large For Gestational Age I: Yes Hx Small for Gestational Age I: No Hx Section: Yes Hx Vaginal Delivery Post C-Sec: No Hx Blood Disorders: No Patient Past Medical History NC Social History/Family History Alcohol Use: Denies Use Recreational Drug Use: No Smoking Cessation: Never smoker 2nd Hand Smoke Exposure: No Immunizations Hepatitis A: Yes Hepatitis B: Yes Tetanus Booster (TDap): Less than 5yrs (10/03/20) Rubella: immune RPR/VDRL: Negative GBS Status: Negative HBsAG: Negative OB - Admission Exam Physical Exam Vitals: Vital Signs 12/16/20 06:34 Temp 36.4 Pulse 90 Resp 18 B/P (MAP) 139/78 (98) Pulse Ox 97 O2 Delivery Room Air HEENT: NCAT Heart: Rhythm Normal Lungs: Clear Abdomen: Gravid Extremities: Normal Reflexes: Normal Cervical Dilatation: other (not examined) Membranes: Ruptured Amniotic Fluid: Clear Heart Rate: 140's Accelerations: Accelerations Present Decelerations: No Decelerations Short Term Variability: Present Investor Relations Director Variability: Average (6-25) Contractions on Admission: 6-10 Minutes Apart Labs Laboratory Tests Test 12/16/20 06:20 Range/Units White Blood Count 10.9 4.3-11.0 10^3/uL Red Blood Count 4.28 3.80-5.11 10^6/uL Hemoglobin 11.9 11.5-16.0 g/dL Hematocrit 37 35-52 % Mean Corpuscular Volume 85 80-99 fL Mean Corpuscular Hemoglobin 28 25-34 pg Mean Corpuscular Hemoglobin Concent 33 32-36 g/dL Red Cell Distribution Width 17.7 H 10.0-14.5 % Platelet Count 204 130-400 10^3/uL Mean Platelet Volume 9.4 9.0-12.2 fL Immature Granulocyte % (Auto) 1 % Neutrophils (%) (Auto) 75 42-75 % Lymphocytes (%) (Auto) 16 12-44 % Monocytes (%) (Auto) 8 0-12 % Eosinophils (%) (Auto) 1 0-10 % Basophils (%) (Auto) 0 0-10 % Neutrophils # (Auto) 8.2 H 1.8-7.8 10^3/uL Lymphocytes # (Auto) 1.7 1.0-4.0 10^3/uL Monocytes # (Auto) 0.8 0.0-1.0 10^3/uL Eosinophils # (Auto) 0.1 0.0-0.3 10^3/uL Basophils # (Auto) 0.0 0.0-0.1 10^3/uL Immature Granulocyte # (Auto) 0.1 0.0-0.1 10^3/uL OB - Assessment/Plan/Diagnosis Assessment Assessment: section, rupture of membranes Admission Dx 39 week gestation history of previous section Spontaneous rupture of membranes Admission Status: Inpatient Order (span 2 midnights) Reason for Inpatient Admission: section post op Plan Plan: Section (Plan repeat section. risks of bleeding, infection, injury to bowel, bladder and ureter. will us prophylactic antibiotics and SCDs.) FATUMA TEE DO Dec 16, 2020 07:44
--- NOTE | 2020-12-16 08:35 | Cesarean Section Operative ---
Procedure Procedure Note Pre-operative Diagnosis: Colleen Jones is a 35 /Para 3 / 2,Gestational Age 39 2/7 weeks, previous section, SROM Post-operative Diagnosis: same Procedure: Repeat low transverse section Physician: FATUMA TEE Line Patrolman: Ann Perry Estimated blood loss: 300 mL Disposition: stable Findings: Viable male infant, Apgars 9/9, weight 9#1 ounce, intact placenta, 3vc, normal appearing uterus, tubes, and ovaries. nuchal cord loose and delivered through Indications:Colleen Jones is a 35 /Para 3 / 2,Gestational Age 39 2/7 weeks, previous section, SROM Procedure Details: The patient was seen in pre-op and the procedure was discussed with the patient in full, including the risks, benefits, and alternatives. All questions were answered. The patient was taken to the operating room and a time out was performed, verifying patient and procedure. After spinal anesthesia was placed by our anesthesia colleagues, the patient was placed in the dorsal supine with leftward tilt for uterine displacement.~ Her abdomen was then prepped and draped in the typical sterile fashion. A Pfannenstiel skin incision was made using a scalpel and carried down through the underlying fascia. The fascia was incised in the midline and tented up using Mireya clamps. On both the inferior and superior fascia side the rectus muscle was dissected off bluntly and sharply using Arguelles scissors. The peritoneum was identified and entered bluntly in the midline. This was then stretched laterally using manual strength. After entering the abdominal cavity and confirming lack of intraperitoneal adhesions, an extra large Ignacio retractor was placed and the lower uterine segment was visualized. A scalpel was utilized to make a low transverse uterine incision. The lower uterine segment was very thin, but there was not a window. Amniotomy was performed with an Allis clamp with return of minimal clear fluid. The 's head was grasped and brought to the level of the incision. A silastic suction was applied for assistance in delivery. Fundal pressure was applied and infant was delivered without difficulty. Mouth and nares were suctioned with bulb suction. After the umbilical cord was clamped and cut, the infant was handed off to the pediatric staff. A sample of cord blood was then obtained. The placenta was delivered intact via uterine massage. The uterus was cleared of all clots and debris. The uterine incision was closed using 0 Vicryl in a running locked fashion. A second imbricated layer was placed using 0 Vicryl in a running fashion as well. The bilateral tubes and ovaries appeared normal. The abdominal gutters were cleared of all clots and debris. A final check of the uterine incision showed it to be hemostatic. The peritoneum was closed using 3-0 Vicryl in a running fashion. The fascia was closed with 0 PDS in a running fashion. The subcutaneous space was hemostatic, and irrigated. The subcutaneous space was closed with 0 Plain in several single interrupted stitches. The skin was then closed using 4-0 Monocryl in a running subcuticular fashion. The skin edges were reapproximated together and were hemostatic. A pressure dressing was applied. All sponge, lap and needle counts were correct at the end of the procedure per nursing. Vitals - Labs Vital Signs - I&O Vital Signs Date Time Temp Pulse Resp B/P (MAP) Pulse Ox O2 Delivery O2 Flow Rate FiO2 12/16/20 07:38 36.9 100 18 115/56 (75) Room Air 12/16/20 06:34 36.4 90 18 97 Room Air 12/16/20 06:34 36.4 90 18 139/78 (98) 97 Room Air Labs Laboratory Tests 12/16/20 06:20: White Blood Count 10.9, Red Blood Count 4.28, Hemoglobin 11.9, Hematocrit 37, Mean Corpuscular Volume 85, Mean Corpuscular Hemoglobin 28, Mean Corpuscular Hemoglobin Concent 33, Red Cell Distribution Width 17.7H, Platelet Count 204, Mean Platelet Volume 9.4, Immature Granulocyte % (Auto) 1, Neutrophils (%) (Auto) 75, Lymphocytes (%) (Auto) 16, Monocytes (%) (Auto) 8, Eosinophils (%) (Auto) 1, Basophils (%) (Auto) 0, Neutrophils # (Auto) 8.2H, Lymphocytes # (Auto) 1.7, Monocytes # (Auto) 0.8, Eosinophils # (Auto) 0.1, Basophils # (Auto) 0.0, Immature Granulocyte # (Auto) 0.1 FATUMA TEE DO Dec 16, 2020 08:35
[2020-12-16] MEDS ORDERED: NALOXONE 0.4 MG/ML 1 ML (NARCAN) VIAL IV PRN (08:45)
[2020-12-16] MEDS ORDERED: TETANUS,DIPTH,PERTUSS P/F (BOOSTRIX) 0.5 ML VIAL IM SCH (08:45)
[2020-12-16] MEDS ORDERED: OXYTOCIN PRE-MIX DRIP 500 ML IV SCH (08:45)
[2020-12-16] MEDS ORDERED: ONDANSETRON 4 MG/2 ML (SDV) Z0FRAN IVP PRN (08:45)
[2020-12-16] MEDS ORDERED: MEASLES,MUMPS,RUBELLA 1 EA INJ SC SCH (08:45)
[2020-12-16] MEDS: DOCUSATE SODIUM 100 MG (COLACE) CAP PO SCH ×2 (10:19→21:58)
[2020-12-16] MEDS: D5 LR IV SOLUTION 1,000 ML IV SCH ×2 (10:32→14:23)
[2020-12-16] MEDS: KETOROLAC 30 MG/ML VIAL IV SCH ×3 (10:33→21:59)
[2020-12-16] MEDS: ACETAMINOPHEN 500 MG TAB (TYLENOL) PO SCH ×2 (14:09→21:58)
[2020-12-16] MEDS: CATHETER FLUSH 10 ML SYR IV SCH ×2 (20:35→21:59)
[2020-12-17] VITALS: BP 109/55
[2020-12-17] MEDS ORDERED: SIMETHICONE 80 MG (MYLICON) CHEW PO PRN (02:00)
[2020-12-17] MEDS ORDERED: SIMETHICONE 80 MG (MYLICON) CHEW ONE (02:01)
[2020-12-17 04:30] VITALS: BP 108/62
[2020-12-17] MEDS ORDERED: MILK OF MAGNESIA 400 MG/5 ML 30 ML UDC PO PRN (05:00)
[2020-12-17 06:15] LABS: BASOPHILS % (AUTO) 0 % (0-10); EOSINOPHILS # (AUTO) 0.1 10^3/uL (0.0-0.3); EOSINOPHILS % (AUTO) 1 % (0-10); HEMATOCRIT 33 % (35-52); HEMOGLOBIN 10.5 g/dL (11.5-16.0); LYMPHOCYTES # (AUTO) 1.8 10^3/uL (1.0-4.0); LYMPHOCYTES % (AUTO) 15 % (12-44); MEAN CORPUSCULAR HEMOGLOBIN 28 pg (25-34); MEAN CORPUSCULAR HGB CONC 32 g/dL (32-36); MEAN CORPUSCULAR VOLUME 87 fL (80-99); MEAN PLATELET VOLUME 9.6 fL (9.0-12.2); MONOCYTES # (AUTO) 0.9 10^3/uL (0.0-1.0); MONOCYTES % (AUTO) 8 % (0-12); NEUTROPHILS # (AUTO) 9.3 10^3/uL (1.8-7.8); NEUTROPHILS % (AUTO) 76 % (42-75); PLATELET COUNT 197 10^3/uL (130-400); WHITE BLOOD COUNT 12.2 10^3/uL (4.3-11.0)
[2020-12-17 06:34] VITALS: BP 131/68
[2020-12-17] MEDS: CATHETER FLUSH 10 ML SYR IV SCH (06:34)
[2020-12-17] MEDS: KETOROLAC 30 MG/ML VIAL IV SCH (06:34)
[2020-12-17] MEDS: ACETAMINOPHEN 500 MG TAB (TYLENOL) PO SCH (06:34)
[2020-12-17] MEDS: DOCUSATE SODIUM 100 MG (COLACE) CAP PO SCH (09:14)
--- NOTE | 2020-12-17 10:15 | Postpartum Progress Note ---
Note Note Day # 1 Subjective: Patient is without complaints. Ambulating, voiding. Tolerating a regular diet without nausea or vomiting. Normal lochia. Pain is well controlled with oral pain medications. Patient is requesting to go home today. Objective: Physical Exam: General - Alert and oriented, no apparent distress Abdomen - Soft, appropriately tender to palpation, non-distended, fundus firm at umbilicus; incision c/d/i Extremities - no edema, negative Nayana's bilaterally Assessment: Post- day # 1, status post RLTCS. Recovering well, hemodynamically stable Acute blood loss anemia Plan: Routine care. Encourage breast feeding. Encourage ambulation. Ferrous sulfate supplementation. Plan for discharge today Vitals - Labs Vital Signs - I&O Vital Signs Date Time Temp Pulse Resp B/P (MAP) Pulse Ox O2 Delivery O2 Flow Rate FiO2 12/17/20 06:34 36.3 56 18 131/68 (89) 97 Room Air 12/17/20 04:30 36.6 92 18 108/62 (77) 97 Room Air 12/17/20 00:00 36.5 80 18 109/55 (73) 98 Room Air 12/16/20 20:30 36.6 88 16 110/58 (75) 98 Room Air 12/16/20 16:20 37.0 84 16 109/58 (75) 96 Room Air 12/16/20 14:09 36.6 89 17 103/59 (74) 97 I & O 12/17/20 06:59 Intake Total 6900 ml Output Total 1800 ml Balance 5100 ml Labs Laboratory Tests 12/17/20 06:00: White Blood Count 12.2H, Red Blood Count 3.78L, Hemoglobin 10.5L, Hematocrit 33L , Mean Corpuscular Volume 87, Mean Corpuscular Hemoglobin 28, Mean Corpuscular Hemoglobin Concent 32, Red Cell Distribution Width 17.6H, Platelet Count 197, Mean Platelet Volume 9.6, Immature Granulocyte % (Auto) 1, Neutrophils (%) (Auto) 76H, Lymphocytes (%) (Auto) 15, Monocytes (%) (Auto) 8, Eosinophils (%) (Auto) 1, Basophils (%) (Auto) 0, Neutrophils # (Auto) 9.3H, Lymphocytes # (Auto) 1.8, Monocytes # (Auto) 0.9, Eosinophils # (Auto) 0.1, Basophils # (Auto) 0.0, Immature Granulocyte # (Auto) 0.1 ANKUSH BUCK APRN Dec 17, 2020 10:15
--- NOTE | 2020-12-17 10:17 | Discharge Inst-Women's Service ---
Discharge Inst-Women's Serv Depart Medication/Instructions New, Converted or Re-Newed RX: Transmitted to Pharmacy Consults/Follow Up Additional Follow Up: Yes Orders/Referrals 1wk incision check and 6wk PP appt Activity Activity: Activity as Tolerated Driving Instructions: No Driving for 1 Week NO SMOKING: NO SMOKING Nothing Inside Vagina: No Douching, No [place], No Tampons Diet Discharge Diet: No Restrictions Symptoms to Report to : Pain Increased, Fever Over 101 Degrees F, Vaginal Bleeding Increase For Any Problems or Questions: Contact Your Physician Skin/Wound Care Infection Signs and Symptoms: Increased Redness, Increased Drainage, Increased Swelling, Temperature Above 101 F Operative Area Clean and Dry: Keep Incision Clean/Dry Stitches/Rhina/Dermabond: Dermabond ANKUSH BUCK APRN Dec 17, 2020 10:17
[2020-12-17] MEDS ORDERED: ACET-93 PO (10:34)
[2020-12-17] MEDS ORDERED: IBUP-844 PO (10:34)
[2020-12-17 11:57] VITALS: BP 112/63
[2020-12-17] MEDS ORDERED: IBUPROFEN 600 MG (MOTRIN) TAB PO SCH (12:00)
== END 2020-12-17 13:30 | disposition home or self-care (01) | DRG 787 ==
LOC: LDRP 06:04 → WS 10:21
PROVIDERS: ADMIT Obstetrics & Gynecology; ATTEND Obstetrics & Gynecology
PROC: 10D00Z1 Extraction of Products of Conception, Low, Open Approach (ICD-10-PCS; principal; 2020-12-16 07:40)
DX: O34.211 Maternal care for low transverse scar from previous cesarean delivery (principal); D62 Acute posthemorrhagic anemia; O99.03 Anemia complicating the puerperium; O69.81X0 Labor and delivery complicated by cord around neck, without compression, not applicable or unspecified; Z3A.39 39 weeks gestation of pregnancy; Z37.0 Single live birth
CPT/HCPCS: 36415; 85025; 86850; 86900; 86901; 94664

== ENCOUNTER → 2021-02-16 | Outpatient (CLI) | payer OTHER ==
[~2021-02-16] MED LIST changes: +ACET-93 PO; +HOLD METFORMIN - RECEIVED CONTRAST 20 ML VIAL IV SCH; +IBUP-844 PO; +IOHEXOL 350 MG/ML 100 ML (OMNIPAQUE 350) VIAL IV ONE; +NS 100 ML (IVPB) BAG IV ONE
--- NOTE | 2021-02-16 16:01 | Diagnostic Imaging Report ---
PROCEDURE: CT head with and without contrast. TECHNIQUE: Multiple contiguous axial images were obtained through the brain before and after the administration of intravenous contrast. Auto Exposure Controls were utilized during the CT exam to meet ALARA standards for radiation dose reduction. INDICATION: Persistent headache. Recent status. Vertigo. COMPARISON: None. FINDINGS: Ventricles and cortical sulci are normal in size and contour. Postcontrast images show no abnormal areas of enhancement. There is no midline shift or mass-effect. No acute intra-axial hemorrhage is seen. There are no abnormal areas of increased or decreased density to suggest acute hemorrhage or edema. No extra-axial masses or collections are present. The bony calvarium is intact. The visualized paranasal sinuses are unremarkable. The mastoid air cells are clear. IMPRESSION: 1. No acute intracranial abnormality. No CT evidence of mass, acute infarct or intracranial hemorrhage. Dictated by: Dictated on workstation # [id number]
== END ==
LOC: RAD 15:45
PROVIDERS: ATTEND Obstetrics & Gynecology
DX: G44.52 New daily persistent headache (NDPH) (principal); R42 Dizziness and giddiness
CPT/HCPCS: 70470

== ENCOUNTER → 2021-07-24 | Outpatient (CLI) | payer OTHER ==
[~2021-07-24] MED LIST changes: +GADOTERATE 0.5 MMOL/ML (CLARISCAN) 20 ML VIAL IV ONE; -HOLD METFORMIN - RECEIVED CONTRAST 20 ML VIAL IV SCH; -IOHEXOL 350 MG/ML 100 ML (OMNIPAQUE 350) VIAL IV ONE; -NS 100 ML (IVPB) BAG IV ONE
--- NOTE | 2021-07-24 09:26 | Diagnostic Imaging Report ---
CLINICAL INDICATION: Patient with right ear and head fullness since last year. Patient with dizziness and brain fog and right-sided headache. Exam: MRI of the brain performed without and with 9 cc of IV contrast. Sequences include axial DWI, ADC map, coronal gradient echo, axial FLAIR, axial T1, axial T2, axial 3-D FIESTA, axial T1 post IV contrast whole brain, coronal T1 fat-sat post IV contrast whole brain, and sagittal T1 fat-sat post IV contrast whole brain. Comparison: Head CT with and without contrast dated 02/16/2021. Findings: There is no evidence of acute cerebral infarct, intracranial hemorrhage, or gross mass effect. There is no abnormal IV contrast enhancement. The brain parenchymal volume appears appropriate for patient's age. There is normal singh-white matter distinction. There is no significant midline shift or herniation. The [place] vascular structures show no gross abnormality as visualized. The pituitary gland, sella, and suprasellar regions are unremarkable as visualized. There is no evidence of hydrocephalus. The basal cisterns are unremarkable. The skull, extracranial soft tissue, and orbits are unremarkable. The paranasal sinuses are unremarkable. Temporal bones show no significant abnormality. The inner ear capsule structures have normal fluid signal. There is no mass in the cerebellopontine angle or in the IACs. Mastoid air cells are clear. IMPRESSION: Unremarkable MRI of the brain. Dictated by: Dictated on workstation # [id number]
== END ==
LOC: RAD 08:00
PROVIDERS: ATTEND Internal Medicine
DX: H93.3X9 Disorders of unspecified acoustic nerve (principal); R42 Dizziness and giddiness; R51.9 Headache, unspecified
CPT/HCPCS: 70553

== ENCOUNTER → 2022-06-29 | Outpatient (CLI) | payer OTHER ==
[~2022-06-29] MED LIST changes: +MULT-1136 PO; +NF-ESOM40C PO
--- NOTE | 2022-06-29 15:25 | Diagnostic Imaging Report ---
PROCEDURE: MR imaging cervical spine without contrast. TECHNIQUE: Multiplanar, multisequence MR imaging of the cervical spine was performed without contrast. INDICATION: Neck pain, headaches COMPARISON: MRI of the head on 07/24/2021 FINDINGS: Straightening of the cervical lordosis. No acute fracture. Mild multilevel degenerative disc desiccation and disc height loss. Bone marrow signal intensity is normal. The spinal cord is normal in signal intensity. On the limited views of the cranial cavity and brain, the cerebellum and della have normal morphology and signal characteristics. No Chiari malformation. No soft tissue abnormality. Normal signal voids are present in the vertebral arteries. C2-3: No significant spinal canal stenosis or neural foraminal narrowing. C3-4: Disc osteophyte complex. No significant spinal canal stenosis or neural foraminal narrowing. C4-5: Disc osteophyte complex. No significant spinal canal stenosis or neural foraminal narrowing. C5-6: Disc osteophyte complex. No significant spinal canal stenosis or neural foraminal narrowing. C6-7: Disc osteophyte complex. No significant spinal canal stenosis or neural foraminal narrowing. C7-T1: No significant spinal canal stenosis or neural foraminal narrowing. IMPRESSION: Mild degenerative changes of the cervical spine. No high-grade spinal canal and neural foraminal stenosis. Dictated by: Dictated on workstation # [id number]
== END ==
LOC: RAD 14:06
PROVIDERS: ATTEND Internal Medicine
DX: G37.9 Demyelinating disease of central nervous system, unspecified (principal); M47.812 Spondylosis without myelopathy or radiculopathy, cervical region
CPT/HCPCS: 72156

== ENCOUNTER 2022-06-30 12:51 | Outpatient (CLI) | payer OTHER ==
[~2022-06-30] VITALS: Ht 152.4 cm; Wt 92.7 kg
[~2022-06-30 12:51] MED LIST changes: -GADOTERATE 0.5 MMOL/ML (CLARISCAN) 20 ML VIAL IV ONE; -MULT-1136 PO; -NF-ESOM40C PO
[2022-06-30] MEDS: IRON DEXTRAN 25 MG/NS 6.25 ML TOTAL VOLUME IV NR ×6 (13:24→13:27)
[2022-06-30] MEDS ORDERED: IRON DEXTRAN 1,000 MG/NS 250 ML IVPB IV ONE ×2 (13:30)
[2022-06-30 15:15] VITALS: BP 146/91
[2022-06-30] MEDS ORDERED: NF-ESOM40C PO (15:45)
[2022-06-30] MEDS ORDERED: MULT-1136 PO (15:45)
== END 2022-06-30 15:15 | disposition home or self-care (01) ==
LOC: SDC 12:51
PROVIDERS: ATTEND Internal Medicine
DX: E61.1 Iron deficiency (principal)
CPT/HCPCS: 96365